=== PATIENT | female | born 1990 | race Caucasian/White ===

== ENCOUNTER 2020-11-07 08:43 | Emergency (ER) | payer MEDICAID ==
[~2020-11-07] VITALS: Ht 152.4 cm; Wt 50.0 kg
[2020-11-07 08:51] VITALS: TEMP 97.7
[2020-11-07 09:18] LABS: COLLECTION METHOD CLEAN CATCH
[2020-11-07 09:24] LABS: BASO # 0.1 (0.0-0.2); BASO % 0.9 % (0.0-2.0); EOS # 0.1 (0.0-0.7); EOS % 2.2 % (0-4.0); GRAN # 1.7 (1.4-6.5); GRAN % 30.2 % (42.2-75.2); HEMATOCRIT 41.8 % (37.0-47.0); HEMOGLOBIN 13.8 g/dl (12.5-16.0); LYMPH # 3.2 (1.2-3.4); LYMPH % 58.2 % (20.0-51.0); MEAN CELL VOLUME 93 fl (80.0-100.0); MEAN CORPUSCULAR HEMOGLOBIN 31 pg (27.0-31.0); MEAN CORPUSCULAR HGB CONC 33 g/dl (33.0-37.0); MEAN PLATELET VOLUME 10.5 fl (7.4-10.4); MONO # 0.5 (0.1-0.6); MONO % 8.3 % (1.7-9.3); PLATELET COUNT 232 K/mm3 (130-400); RED BLOOD COUNT 4.49 M/mm3 (4.10-5.30)
[2020-11-07 09:30] LABS: PH 7 (5-8); SQUAMOUS EPITHELIAL 0-2 /hpf; URINE APPEARANCE Clear; URINE BACTERIA None Seen /hpf; URINE BILIRUBIN Negative (NEGATIVE); URINE BLOOD Negative (NEGATIVE); URINE COLOR Colorless; URINE GLUCOSE Negative (NEGATIVE); URINE KETONE Negative (NEGATIVE); URINE LEUKOCYTE ESTERASE Negative (NEGATIVE); URINE NITRATE Negative (NEGATIVE); URINE PROTEIN(semi-quant) Negative (NEGATIVE); URINE RBC None Seen /hpf; URINE UROBILINOGEN Negative (NEGATIVE)
[2020-11-07 09:35] LABS: BILIRUBIN,TOTAL 1.1 mg/dL (0.0-1.0); CALCIUM 9.2 mg/dL (8.4-10.2); CREATININE, serum 0.81 (0.52-1.25); POTASSIUM 3.3 mmol/L (3.4-5.0)
[2020-11-07 10:07] VITALS: BP 111/73; PULSE 91
== END 2020-11-07 10:10 | disposition home or self-care (01) ==
LOC: COL.ER 08:43
PROVIDERS: Emergency Medicine
DX: R11.0 Nausea (principal); F41.9 Anxiety disorder, unspecified; Z32.02 Encounter for pregnancy test, result negative
CPT/HCPCS: J2405; J7030

== ENCOUNTER 2021-06-08 03:50 | Emergency (ER) | payer MEDICAID ==
[~2021-06-08] VITALS: Ht 152.4 cm; Wt 47.7 kg
[2021-06-08 04:01] VITALS: BP 116/66; PULSE 90; TEMP 98.6
== END 2021-06-08 04:38 | disposition home or self-care (01) ==
LOC: COL.ER 03:50
DX: R53.81 Other malaise (principal); R11.0 Nausea; F17.210 Nicotine dependence, cigarettes, uncomplicated

== ENCOUNTER 2021-07-22 00:52 | Emergency (ER) | payer MEDICAID ==
[~2021-07-22] VITALS: Ht 152.4 cm; Wt 54.5 kg
[2021-07-22 01:17] VITALS: TEMP 98.3
[2021-07-22 01:45] LABS: STREP SCREEN NEGATIVE
[2021-07-22 02:20] VITALS: BP 123/81; PULSE 80
== END 2021-07-22 02:42 | disposition home or self-care (01) ==
LOC: COL.ER 00:52
PROVIDERS: Personal Emergency Response Attendant
DX: B34.9 Viral infection, unspecified (principal); Z72.0 Tobacco use; Z20.822 Contact with and (suspected) exposure to COVID-19

== ENCOUNTER 2021-10-06 15:41 | Emergency (ER) | payer MEDICAID ==
[~2021-10-06] VITALS: Ht 152.4 cm; Wt 50.0 kg
[2021-10-06 16:06] VITALS: BP 107/66; PULSE 98; TEMP 98.3
[2021-10-06] MEDS ORDERED: ZOFRAN ODT4 MG PO (16:47)
== END 2021-10-06 15:59 | disposition home or self-care (01) ==
LOC: COL.ER 15:41
DX: B34.9 Viral infection, unspecified (principal); F17.200 Nicotine dependence, unspecified, uncomplicated

== ENCOUNTER → 2022-03-20 | Outpatient (CLI) | payer MEDICAID ==
[~2022-03-20] MED LIST: ZOFRAN ODT4 MG PO
== END ==
LOC: COL.RAD 15:45
DX: R59.1 Generalized enlarged lymph nodes (principal)

== ENCOUNTER → 2022-03-27 | Outpatient (CLI) | payer MEDICAID | LOC: MC.RAD 14:00 | DX: R59.1 Generalized enlarged lymph nodes (principal); N63.0 Unspecified lump in unspecified breast ==

== ENCOUNTER 2023-07-07 23:19 | Emergency (ER) | payer MEDICAID ==
[~2023-07-07] VITALS: Ht 160 cm; Wt 45.5 kg
[~2023-07-07 23:19] MED LIST changes: +FLEXERIL 1010 MG/TAB PO; +NORCO 325 MG-51 TAB PO
[2023-07-08 00:09] LABS: BASO % 0.7 % (0.0-2.0); EOS # 0.1 K/mm3 (0.0-0.7); EOS % 2.9 % (0.0-4.0); GRAN # 2.2 K/mm3 (1.4-6.5); HEMATOCRIT 38.1 % (37.0-47.0); HEMOGLOBIN 12.8 g/dl (12.5-16.0); LYMPH # 1.6 K/mm3 (1.2-3.4); LYMPH % 36.8 % (20.0-51.0); MEAN CELL VOLUME 96 fl (80.0-100.0); MEAN CORPUSCULAR HEMOGLOBIN 32 pg (27-31); MEAN CORPUSCULAR HGB CONC 34 g/dl (33.0-37.0); MEAN PLATELET VOLUME 10.7 fl (7.4-10.4); MONO # 0.5 K/mm3 (0.1-0.6); MONO % 10.4 % (1.7-9.3); PLATELET COUNT 168 K/mm3 (130-400); RED BLOOD COUNT 3.98 M/mm3 (4.10-5.30); REDCELL DISTRIBUTION WIDTH-CV 12.3 % (11.5-14.5)
[2023-07-08 00:17] LABS: BILIRUBIN,TOTAL 0.8 mg/dL (0.2-1.2); CALCIUM 8.5 mg/dL (8.4-10.2); CREATININE, serum 0.76 mg/dL (0.57-1.11); POTASSIUM 3.3 mmol/L (3.5-4.5); TOTAL PROTEIN 6.9 gm/dL (6.2-8.1)
[2023-07-08 00:32] LABS: ERYTHROCYTE SEDIMENTATION RATE 0 mm/hr (0-20)
[2023-07-08] MEDS ORDERED: ATARAX 25MG25 MG/TAB PO (00:42)
[2023-07-08 00:56] VITALS: BP 121/81; PULSE 98; TEMP 97.5
== END 2023-07-08 00:56 | disposition home or self-care (01) ==
LOC: COL.ER 23:19
PROVIDERS: Emergency Medicine
DX: I73.00 Raynaud's syndrome without gangrene (principal); F41.9 Anxiety disorder, unspecified; F17.200 Nicotine dependence, unspecified, uncomplicated